=== PATIENT | male | born 1975 | race Caucasian/White ===

== ENCOUNTER 2017-12-02 07:42 | Day surgery (SDC) | payer BC ==
[~2017-12-02] VITALS: Ht 188.1 cm; Wt 113.0 kg
[2017-12-02] VITALS (11 sets, daily range): BP systolic 111–139; BP diastolic 78–107; PULSE 75–95; TEMP 97.6
[~2017-12-02 07:42] MED LIST: AMOXICILLIN 50500 MG PO; BACTRIM DS 8001 TAB PO; CEPHALEXIN500 M1 PO; FLEXERIL 1010 MG/TAB PO; LORTAB 5/500 501 TAB PO; NAPROSYN500 MG PO; NO HOME MEDICATIONS; NORCO 325 MG-7.1 TAB PO
[2017-12-02] MEDS ORDERED: LIPITOR 80MG80 MG PO (08:45)
[2017-12-02] MEDS ORDERED: PRILOSEC 20MG20 MG PO (08:46)
[2017-12-02] MEDS ORDERED: NORVASC 5MG5 MG/TAB PO (08:46)
[2017-12-02] MEDS ORDERED: NITROSTAT0.4 MG/TAB SL (08:47)
[2017-12-02] MEDS ORDERED: ASPIRIN E.C. 8181 MG PO (08:47)
[2017-12-02] MEDS ORDERED: CLARITIN 1010 MG/TAB PO (08:48)
[2017-12-02 08:55] LABS: HEMATOCRIT 48.2 % (42.0-52.0); HEMOGLOBIN 16.3 g/dl (13.5-18.0); MEAN CELL VOLUME 87 fl (80.0-100.0); MEAN CORPUSCULAR HEMOGLOBIN 29 pg (27.0-31.0); MEAN CORPUSCULAR HGB CONC 34 g/dl (33.0-37.0); MEAN PLATELET VOLUME 10.9 fl (7.4-10.4); PLATELET COUNT 266 K/mm3 (130-400); RED BLOOD COUNT 5.55 M/mm3 (4.20-5.60); REDCELL DISTRIBUTION WIDTH-CV 13.8 % (11.5-14.5)
[2017-12-02 09:01] LABS: PROTHROMBIN TIME 11.3 SECONDS (9.7-12.8)
[2017-12-02 09:09] LABS: CALCIUM 9.4 mg/dL (8.4-10.2); CREATININE, serum 0.89 mg/dL (0.66-1.25); POTASSIUM 4.1 mmol/L (3.4-5.0)
[2017-12-02] MEDS ORDERED: NORVASC 10MG10 MG PO (11:45)
== END 2017-12-02 14:47 | disposition home or self-care (01) ==
LOC: COL.CAR 07:42
PROVIDERS: Internal Medicine Cardiovascular Disease
DX: R06.00 Dyspnea, unspecified (principal); J44.9 Chronic obstructive pulmonary disease, unspecified; I10 Essential (primary) hypertension; E78.5 Hyperlipidemia, unspecified; F17.290 Nicotine dependence, other tobacco product, uncomplicated; Z79.899 Other long term (current) drug therapy; Z80.9 Family history of malignant neoplasm, unspecified; Z79.82 Long term (current) use of aspirin; E78.2 Mixed hyperlipidemia
CPT/HCPCS: C1769; J1644; J2250; J3010; Q9967

== ENCOUNTER 2018-11-10 19:24 | Emergency (ER) | payer BC ==
[~2018-11-10] VITALS: Ht 188 cm; Wt 113.6 kg
[~2018-11-10 19:24] MED LIST changes: +ASPIRIN E.C. 8181 MG PO; +CLARITIN 1010 MG/TAB PO; +LIPITOR 80MG80 MG PO; +NITROSTAT0.4 MG/TAB SL; +NORVASC 10MG10 MG PO; +NORVASC 5MG5 MG/TAB PO; +PRILOSEC 20MG20 MG PO
[2018-11-10 19:55] VITALS: BP 167/102; TEMP 97.6
[2018-11-10] MEDS ORDERED: CLARITIN 1010 MG/TAB PO (22:02)
[2018-11-10] MEDS ORDERED: VASOTEC 2.2.5 MG/TAB PO (22:02)
[2018-11-10 22:25] VITALS: PULSE 80
== END 2018-11-10 22:26 | disposition home or self-care (01) ==
LOC: COL.ER 19:24
DX: M25.511 Pain in right shoulder (principal); F17.210 Nicotine dependence, cigarettes, uncomplicated; Z90.49 Acquired absence of other specified parts of digestive tract; Z98.52 Vasectomy status; W19.XXXA Unspecified fall, initial encounter; Y92.69 Other specified industrial and construction area as the place of occurrence of the external cause; Y99.0 Civilian activity done for income or pay